=== PATIENT | female | born 1990 | race Caucasian/White ===

== ENCOUNTER 2023-06-12 10:31 | Outpatient (CLI) | payer BC ==
[2023-06-12 14:55] LABS: BASOPHILS % (AUTO) 0.1 %; EOSINOPHILS # (AUTO) 0.1 10^3/uL (0.0-0.7); EOSINOPHILS % (AUTO) 1.3 %; HCT - HEMATOCRIT 43.4 % (37.0-47.0); HGB - HEMOGLOBIN 14.3 g/dL (12.0-16.0); LYMPHOCYTES # (AUTO) 1.4 10^3/uL (1.5-3.5); LYMPHOCYTES % (AUTO) 21.1 %; MEAN CORPUSCULAR HEMOGLOBIN 30.5 pg (27.0-31.0); MEAN CORPUSCULAR HGB CONC 32.9 g/dL (32.0-36.0); MEAN CORPUSCULAR VOLUME 92.5 fL (81.0-99.0); MEAN PLATELET VOLUME 12.2 fL (7.9-10.8); MONOCYTES # (AUTO) 0.4 10^3/uL (0.0-1.0); MONOCYTES % (AUTO) 5.3 %; NEUTROPHILS # (AUTO) 4.8 10^3/uL (1.5-6.6); NEUTROPHILS % (AUTO) 72.1 %; PLT - PLATELET COUNT 225 10^3/uL (130-450); RED BLOOD COUNT 4.69 10^6/uL (4.20-5.40); RED CELL DISTRIBUTION WIDTH 12.1 % (12.0-15.0); WHITE BLOOD COUNT 6.7 x10^3/uL (4.8-10.8)
[2023-06-12 15:12] LABS: ALBUMIN 4.8 g/dL (3.2-5.5); ALBUMIN/GLOBULIN RATIO 1.6 (1.0-2.2); BILIRUBIN,TOTAL 0.8 mg/dL (0.2-1.0); CREATININE 0.6 mg/dL (0.6-1.3); POTASSIUM 3.9 mmol/L (3.5-4.5); TOTAL PROTEIN 7.8 g/dL (6.4-8.9)
== END 2023-06-12 10:32 | disposition home or self-care (01) ==
LOC: LAB.S 10:31
PROVIDERS: ATTEND Emergency Medicine
DX: R10.11 Right upper quadrant pain (principal)
CPT/HCPCS: 36415; 80053; 83690; 85025

== ENCOUNTER 2023-06-20 07:22 | Outpatient (CLI) | payer BC ==
--- NOTE | 2023-06-20 14:35 | Ultrasound Report ---
PROCEDURE: Abdomen Limited INDICATIONS: RUQ ABD PAIN TECHNIQUE: Real-time focused scanning was performed of the abdomen, with image documentation. COMPARISONS: None. FINDINGS: Liver: Increased liver echogenicity, commonly mild hepatic steatosis. The liver is normal in size. E chogenic lesion within the left hepatic lobe measuring 1.1 cm, favored to represent a hemangioma. Gallbladder: Unremarkable. Biliary ducts: Intrahepatic bile ducts are non-dilated. Extrahepatic bile duct caliber measures 4.0 mm. Normal is 6-7 mm or less in diameter, or 10 mm or less post-cholecystectomy. Pancreas: Visualized portions of the pancreas are sonographically normal. Pancreatic tail is not wel l seen secondary to overlying bowel gas. Right kidney: Normal in size and echotexture. Right kidney measures 10.8 cm long. No hydronephrosis or nephrolithiasis. No solid masses. No complex renal cystic lesions which require follow-up. Miscellaneous: No free abdominal fluid. IMPRESSION: 1.Liver is increased in echogenicity, most consistent with hepatic steatosis. 2.There is a small echogenic lesion within the left hepatic lobe measuring 1.1 cm, may represent a he mangioma. 3.Gallbladder is within normal limits. No gallstones or gallbladder wall thickening. Reviewed by: Sherif Flanagan MD on 06/20/2023 2:34 PM PST Approved by: Sherif Flanagan MD on 06/20/2023 2:34 PM PST Station ID: [id number]
== END 2023-06-20 07:23 | disposition home or self-care (01) ==
LOC: DI 07:22
PROVIDERS: ATTEND Emergency Medicine
DX: R10.11 Right upper quadrant pain (principal); K76.89 Other specified diseases of liver

== ENCOUNTER 2023-09-15 07:43 | Outpatient (CLI) | payer BC ==
[2023-09-15 15:14] LABS: ABSOLUTE RETICS # AUTO 0.061 10^6/uL (0.020-0.110); BASOPHILS % (AUTO) 0.4 %; EOSINOPHILS # (AUTO) 0.1 10^3/uL (0.0-0.7); EOSINOPHILS % (AUTO) 2.2 %; HCT - HEMATOCRIT 41.2 % (37.0-47.0); HGB - HEMOGLOBIN 12.7 g/dL (12.0-16.0); LYMPHOCYTES # (AUTO) 1.8 10^3/uL (1.5-3.5); LYMPHOCYTES % (AUTO) 35.5 %; MEAN CORPUSCULAR HEMOGLOBIN 29.6 pg (27.0-31.0); MEAN CORPUSCULAR HGB CONC 30.8 g/dL (32.0-36.0); MEAN PLATELET VOLUME 12.5 fL (7.9-10.8); MONOCYTES # (AUTO) 0.4 10^3/uL (0.0-1.0); MONOCYTES % (AUTO) 7.2 %; NEUTROPHILS # (AUTO) 2.7 10^3/uL (1.5-6.6); NEUTROPHILS % (AUTO) 54.5 %; PLT - PLATELET COUNT 222 10^3/uL (130-450); RED BLOOD COUNT 4.29 10^6/uL (4.20-5.40); RED CELL DISTRIBUTION WIDTH 12.5 % (12.0-15.0); RETICULOCYTE COUNT % (AUTO) 1.43 % (0.5-2.3)
[2023-09-15 15:30] LABS: RHEUMATOID FACTOR NEGATIVE (Negative)
[2023-09-15 15:49] LABS: % IRON SATURATION 44 % (20-50); ALBUMIN 4.3 g/dL (3.2-5.5); ALKALINE PHOSPHATASE 52 IU/L (42-121); ALT ALANINE AMINOTRANSFERASE 13 IU/L (10-60); AST ASPARTATE AMINOTRANSFERASE 14 IU/L (10-42); BILIRUBIN,TOTAL 0.7 mg/dL (0.2-1.0); BUN - BLOOD UREA NITROGEN 12 mg/dL (6-20); CALCIUM 9.5 mg/dL (8.5-10.3); CARBON DIOXIDE - CO2 26 mmol/L (21-32); CHLORIDE 107 mmol/L (101-111); CHOL/HDL RATIO 2.5 (<4.4); CHOLESTEROL 152 mg/dL; CREATININE 0.6 mg/dL (0.6-1.3); CRP - C-REACTIVE PROTEIN < 0.5 mg/dL (<0.5); GFR - MDRD 114 (>89); GLUCOSE 89 mg/dL (74-104); HDL CHOLESTEROL 62 mg/dL; IRON 130 ug/dL (50-212); LDL CHOLESTEROL,CALCULATED 76 mg/dL; LDL/HDL RATIO 1.2 (<4.4); POTASSIUM 3.9 mmol/L (3.5-4.5); SODIUM 138 mmol/L (135-145); TOTAL IRON BINDING CAPACITY 295 ug/dL (250-450); TOTAL PROTEIN 6.4 g/dL (6.4-8.9); TRANSFERRIN 211 mg/dL (203-362); TRIGLYCERIDES 72 mg/dL (48-352); URIC ACID 3.8 mg/dL (2.3-6.6); VLDL CHOLESTEROL 14 mg/dL
[2023-09-15 15:56] LABS: THYROID STIMULATING HORMONE 1.94 uIU/mL (0.34-5.60)
[2023-09-15 16:02] LABS: FERRITIN 17.2 ng/mL (11.0-306.8)
[2023-09-15 20:57] LABS: ESTIMATED AVERAGE GLUCOSE 97 mg/dL (70-100)
[2023-09-16 08:10] LABS: VITAMIN D 25-HYDROXY 26.6 ng/mL (30.0-100.0)
[2023-09-16 23:06] LABS: CYCLIC CITRULLINATED PEP IGG/A 0 units (0-19)
== END 2023-09-15 07:44 | disposition home or self-care (01) ==
LOC: LAB.S 07:43
PROVIDERS: ATTEND Physician Assistant Medical
DX: K76.0 Fatty (change of) liver, not elsewhere classified (principal); Z13.9 Encounter for screening, unspecified; R53.83 Other fatigue; N94.6 Dysmenorrhea, unspecified; M79.10 Myalgia, unspecified site
CPT/HCPCS: 36415; 80053; 80061; 81599; 82306; 82607; 82728; 82746; 83036; 83540; 83721; 84443; 84466; 84550; 85025; 85045; 85651; 86038; 86140; 86200; 86225; 86430

== ENCOUNTER 2023-10-20 07:40 | Outpatient (CLI) | payer BC ==
--- NOTE | 2023-10-20 08:58 | Mammography Report ---
BILATERAL DIGITAL DIAGNOSTIC MAMMOGRAM 3D/2D: 10/20/2023 CLINICAL: Baseline exam. Palpable left breast lump. No prior exams were available for comparison. Both breasts are almost entirely fatty (category a/<25% glandular tissue). No significant masses, calcifications, or other findings are seen in either breast. IMPRESSION: INCOMPLETE: NEEDS ADDITIONAL IMAGING EVALUATION No mammographic evidence of malignancy. A targeted ultrasound is recommended and will immediately follow. Based on Tyrer-Cuzick model (a risk assessment model), the patient's lifetime risk is 36.8% and her 1 0 year risk is 7.2%. If a patient has an elevated risk, a more comprehensive evaluation should be con sidered and/or a referral to a genetic counselor. The [place] [employer], [employer] [place] [employer], and NCCN Guidelines advise the consideration of Breast MRI as an adjunct to screening mammog ruben in patients whose "Lifetime risk to develop breast cancer" is 20% or higher. This exam was interpreted at Station ID: [id number]. NOTE: For mammograms, a report in lay terms will be sent to the patient. Approximately 15% of breast malignancies will not be visualized mammographically. In the management of a palpable breast mass, a negative mammogram must not discourage biopsy of a clinically suspicious lesion. Electronically Signed By: Chris Gambino M.D. slc/:10/20/2023 08:18:15 ACR BI-RADS Category 0: Incomplete 3340F PARENCHYMAL PATTERN: (F) - The breast(s) demonstrate(s) diffuse fatty replacement. BI-RADS CATEGORY: (0) - 0 Ultrasound [id number] Immediate follow-up LATERALITY: (B)
--- NOTE | 2023-10-20 08:58 | Ultrasound Report ---
LIMITED ULTRASOUND OF LEFT BREAST: 10/20/2023 CLINICAL: Palpable left breast lump. Comparison is made to exam dated: 10/20/2023 mammogram - [facility]. Color flow and real-time ultrasound of the left breast 7 o'clock region were performed. Villatoro scale i mages of the real-time examination were reviewed. No significant abnormalities were seen sonographically in the left breast. IMPRESSION: NEGATIVE No sonographic evidence of malignancy in the region of the palpable abnormality. A 1 year screening mammogram is recommended. Increased breast cancer risk. Exam findings were conveyed to the patient. Patient is advised to monitor for significant change. Cli nical follow-up as needed. This exam was interpreted at Station ID: [id number]. Electronically Signed By: Chris Gambino M.D. slc/:10/20/2023 08:28:08 Ultrasound BI-RADS: 1 Negative BI-RADS CATEGORY: (1) - 1 RECOMMENDATION: (ANNUAL) - Recommend routine annual screening mammography. [id number] 1 year screening LATERALITY: (B)
== END 2023-10-20 07:41 | disposition home or self-care (01) ==
LOC: DI 07:40
PROVIDERS: ATTEND Physician Assistant Medical
DX: N63.20 Unspecified lump in the left breast, unspecified quadrant (principal)

== ENCOUNTER 2023-11-10 08:47 | Outpatient (CLI) | payer BC ==
--- NOTE | 2023-11-10 12:58 | Ultrasound Report ---
PROCEDURE: Pelvic w/Transvaginal INDICATIONS: DYSMENORRHEA TECHNIQUE: Real-time scanning was performed of the pelvic organs, with image documentation. Additional endovagi nal scanning was necessary due to incomplete visualization of the adnexal and endometrial structures by transabdominal scanning. COMPARISON: None. FINDINGS: Uterus: Uterus is anteverted and normal in size at 7.1 x 3.3 x 5.2 cm. The myometrium is homogeneou s. The endometrium measures 11 mm in combined thickness. No myometrial masses. Ovaries: The right ovary measures 3.3 x 1.3 x 1.3 cm, with a calculated ovarian volume of 2.7 cc. T he left ovary measures 2.4 x 1.6 x 1.4 cm, with a calculated ovarian volume of 2.8 cc. The ovaries h ave a normal sonographic appearance. Less than 12 follicles can be seen in each ovary. No adnexal m asses are seen. No cystic lesions measuring greater than 3 cm. Other: No pathologic free abdominal or pelvic fluid. IMPRESSION: Normal pelvic ultrasound. Reviewed by: Stefanie Wilkerson MD on 11/10/2023 12:57 PM PDT Approved by: Stefanie Wilkerson MD on 11/10/2023 12:57 PM PDT Station ID: [id number]
== END 2023-11-10 08:48 | disposition home or self-care (01) ==
LOC: DI 08:47
PROVIDERS: ATTEND Nurse Practitioner
DX: N94.6 Dysmenorrhea, unspecified (principal)

== ENCOUNTER 2023-11-13 07:54 | Outpatient (CLI) | payer BC ==
[2023-11-13 15:49] LABS: THYROID STIMULATING HORMONE 1.81 uIU/mL (0.34-5.60)
[2023-11-13 15:55] LABS: PROLACTIN 27.67 ng/mL
[2023-11-14 07:10] LABS: DHEA-SULFATE 82.4 ug/dL (57.3-279.2); ESTRADIOL 25.9 pg/mL (.); PROGESTERONE 0.2 ng/mL (.); SEX HORM BINDING GLOB SERUM 39.6 nmol/L (24.6-122.0)
== END 2023-11-13 07:55 | disposition home or self-care (01) ==
LOC: LAB.S 07:54
PROVIDERS: ATTEND Nurse Practitioner
DX: Z31.41 Encounter for fertility testing (principal); Z67.91 Unspecified blood type, Rh negative
CPT/HCPCS: 36415; 82166; 82627; 82670; 83001; 83002; 84143; 84144; 84146; 84270; 84402; 84403; 84443; 86762; 86787; 86850